=== PATIENT | female | born 1975 | race Two or more races ===

== ENCOUNTER 2024-07-17 15:05 | Emergency (ER) | payer MEDICAID ==
[~2024-07-17] VITALS: Ht 154.9 cm; Wt 81.8 kg
[2024-07-17] MEDS ORDERED: HYDROcodone-ACET 5/325MG TAB PO ONE (15:45)
[2024-07-17 15:49] VITALS: BP 144/88; PULSE 120; RESP 18; TEMP 98.1; O2SAT 96
[2024-07-17] MEDS: HYDROcodone-ACET 10/325MG TAB PO ONE (16:14)
[2024-07-17] MEDS ORDERED: HYDR-4798 PO ×2 (16:38→19:09)
== END 2024-07-17 16:51 | disposition home or self-care (01) ==
LOC: ER 15:05
DX: S82.045A Nondisplaced comminuted fracture of left patella, initial encounter for closed fracture (principal); W01.198A Fall on same level from slipping, tripping and stumbling with subsequent striking against other object, initial encounter; Y93.89 Activity, other specified; Y92.89 Other specified places as the place of occurrence of the external cause; Y99.8 Other external cause status
CPT/HCPCS: 29505; 73562